=== PATIENT | male | born 1945 | race Caucasian/White ===

== ENCOUNTER 2021-11-01 04:17 | Day surgery (SDC) | payer OTHER ==
[2021-10-30 13:01] VITALS: BMI 34.7
[2021-11-01 10:17] VITALS: TEMP 97.8
[2021-11-01 10:44] VITALS: RESP 16
[2021-11-01 11:47] VITALS: BP 130/72; PULSE 62
== END 2021-11-01 11:15 | disposition home or self-care (01) ==
LOC: JASU-ENDO 04:17
PROVIDERS: ATTEND Internal Medicine Gastroenterology
PROC: 0DBL8ZX Excision of Transverse Colon, Via Natural or Artificial Opening Endoscopic, Diagnostic (ICD-10-PCS; principal; 2021-11-01 10:00)
DX: Z12.11 Encounter for screening for malignant neoplasm of colon (principal); K63.5 Polyp of colon; K57.30 Diverticulosis of large intestine without perforation or abscess without bleeding; Z86.010 Personal history of colon polyps; I10 Essential (primary) hypertension
CPT/HCPCS: 88305-TC